=== PATIENT | female | born 1955 | race Caucasian/White ===

== ENCOUNTER → 2017-01-30 | Outpatient (CLI) | payer OTHER | LOC: SUN.DIA 10:15 | DX: E11.65 Type 2 diabetes mellitus with hyperglycemia (principal); Z71.3 Dietary counseling and surveillance; E78.5 Hyperlipidemia, unspecified; I10 Essential (primary) hypertension | CPT/HCPCS: G0108 ==

== ENCOUNTER → 2017-02-21 | Outpatient (CLI) | payer OTHER | LOC: SUN.DIA 11:38 | DX: E11.9 Type 2 diabetes mellitus without complications (principal); E78.5 Hyperlipidemia, unspecified; I10 Essential (primary) hypertension; Z68.30 Body mass index [BMI] 30.0-30.9, adult; Z71.3 Dietary counseling and surveillance | CPT/HCPCS: G0108 ==

== ENCOUNTER → 2018-08-01 | Outpatient (CLI) | payer OTHER | LOC: SUN.DIA 07:50 | DX: E11.9 Type 2 diabetes mellitus without complications (principal); E78.5 Hyperlipidemia, unspecified; I10 Essential (primary) hypertension | CPT/HCPCS: G0108 ==

== ENCOUNTER → 2018-08-28 | Outpatient (CLI) | payer OTHER | LOC: SUN.DIA 09:13 | DX: E11.9 Type 2 diabetes mellitus without complications (principal); E78.5 Hyperlipidemia, unspecified; I10 Essential (primary) hypertension | CPT/HCPCS: G0109 ==

== ENCOUNTER → 2018-09-04 | Outpatient (CLI) | payer OTHER | LOC: SUN.DIA 09:00 | DX: E11.9 Type 2 diabetes mellitus without complications (principal); E78.5 Hyperlipidemia, unspecified; I10 Essential (primary) hypertension | CPT/HCPCS: G0109 ==

== ENCOUNTER → 2018-09-11 | Outpatient (CLI) | payer OTHER | LOC: SUN.DIA 14:04 | DX: E11.9 Type 2 diabetes mellitus without complications (principal); E78.5 Hyperlipidemia, unspecified; I10 Essential (primary) hypertension | CPT/HCPCS: G0109 ==

== ENCOUNTER → 2018-09-18 | Outpatient (CLI) | payer OTHER | LOC: SUN.DIA 15:55 | DX: E11.9 Type 2 diabetes mellitus without complications (principal); E78.5 Hyperlipidemia, unspecified; I10 Essential (primary) hypertension | CPT/HCPCS: G0109 ==

== ENCOUNTER → 2018-11-11 | Outpatient (CLI) | payer OTHER | LOC: SUN.DIA 10-08 11:29 | DX: E11.9 Type 2 diabetes mellitus without complications (principal); E78.5 Hyperlipidemia, unspecified; I10 Essential (primary) hypertension | CPT/HCPCS: G0108 ==